=== PATIENT | male | born 1950 | race Asian ===

== ENCOUNTER 2024-05-27 10:46 | Emergency (ER) | payer OTHER ==
[2024-05-27 10:56] VITALS: RESP 18; TEMP 98.6; BMI 23.3
[2024-05-27] MEDS ORDERED: DIPHTH,PERTUSS(ACELL),TET 0.5 ML DISP.SYRIN IM ONE (11:24)
[2024-05-27] MEDS ORDERED: IBUPROFEN 600 MG TABLET (FP) PO ONE (11:24)
[2024-05-27] MEDS: DIPHTH,PERTUSS(ACELL),TET 0.5 ML DISP.SYRIN IM ONE (11:25)
[2024-05-27] MEDS: IBUPROFEN 600 MG TABLET (FP) PO ONE (11:26)
[2024-05-27] MEDS ORDERED: amLODIPine BESYLATE 5 MG TABLET (FP) ONE (11:31)
[2024-05-27] MEDS: amLODIPine BESYLATE 5 MG TABLET (FP) PO ONE (11:32)
[2024-05-27 12:17] VITALS: BP 176/88; PULSE 88
== END 2024-05-27 12:25 | disposition home or self-care (01) ==
LOC: FER 10:46
PROC: 3E0234Z Introduction of Serum, Toxoid and Vaccine into Muscle, Percutaneous Approach (ICD-10-PCS; principal; 2024-05-27)
DX: S68.122A Partial traumatic metacarpophalangeal amputation of right middle finger, initial encounter (principal); W29.0XXA Contact with powered kitchen appliance, initial encounter; Z23 Encounter for immunization
CPT/HCPCS: 90471; 90715; 99284-25